=== PATIENT | female | born 1940 | race African-American/Black ===

== ENCOUNTER 2017-04-15 15:57 | Inpatient (IN) | payer OTHER ==
[~2017-04-15] VITALS: Ht 170.2 cm; Wt 78.9 kg
[~2017-04-15 15:57] MED LIST: ATOR40TA70 PO; CLON1PAT10 TD; DONE5TAB33 PO; LEVO25TA7 PO
[2017-04-15 16:44] LABS: BASOPHILS % 0.6 % (0.0-2.0); EOSINOPHILS % 0.7 % (0.0-5.0); HEMATOCRIT. 36.9 % (36.0-48.0); HEMOGLOBIN. 12.2 g/dL (12.0-16.0); LYMPHOCYTES % 38.5 % (20.0-50.0); MEAN CORPUSCULAR HEMOGLOBIN 28.3 pg (28.0-32.0); MEAN CORPUSCULAR VOLUME 85.9 fL (81.0-99.0); MEAN PLATELET VOLUME 8.4 fl (7.4-10.4); MONOCYTES % 5.9 % (2.0-8.0); NEUTROPHILS % 54.3 % (40.0-76.0); PLATELET 228 x1000/uL (130-400); RED BLOOD CELL COUNT 4.29 mill/uL (4.2-5.4)
[2017-04-15 16:51] LABS: PROTHROMBIN TIME 10.7 sec (9.4-11.6)
[2017-04-15 16:53] LABS: CHLORIDE 103 mEq/L (98-107)
[2017-04-15 16:59] LABS: TROPONIN I < 0.02 ng/mL (0.00-0.04)
[2017-04-15] MEDS ORDERED: SODIUM CHLORIDE 0.9% 1,000 ML IV ONE (18:45)
[2017-04-15 19:02] LABS: CLARITY URINE CLOUDY (CLEAR); COLOR URINE YELLOW (YELLOW); KETONES URINE NEGATIVE (NEGATIVE); LEUKOCYTE ESTERASE URINE 1+ (NEGATIVE); NITRITE URINE POSITIVE (NEGATIVE); OCCULT BLOOD URINE NEGATIVE (NEGATIVE); PROTEIN URINE NEGATIVE (NEGATIVE); SPECIFIC GRAVITY URINE 1.019 (1.005-1.030); UROBILINOGEN URINE 0.2 E.U./dL (0.2-1.0)
[2017-04-15] MEDS ORDERED: CEFTRIAXONE 1 G PREMIX 50 ML IV ONE (19:30)
[2017-04-15 23:42] VITALS: BP 185/116
[2017-04-16] VITALS: BP 185/116
[2017-04-16] MEDS ORDERED: CLONIDINE 0.1MG TABLET PO PRN (00:45)
[2017-04-16 04:00] VITALS: BP 124/83
[2017-04-16 08:00] VITALS: BP 144/88
[2017-04-16] MEDS ORDERED: AMLODIPINE 10MG TABLET PO SCH (09:00)
[2017-04-16] MEDS ORDERED: ASPIRIN 81MG TABLET PO SCH (09:00)
[2017-04-16 16:00] VITALS: BP 159/104
[2017-04-16 16:43] VITALS: BP 159/104
[2017-04-16] MEDS ORDERED: CEFTRIAXONE 1 G PREMIX 50 ML IV SCH (18:00)
[2017-04-16] MEDS ORDERED: ATORVASTATIN CALCIUM 40MG TABLET PO SCH (21:00)
== END 2017-04-16 17:00 | disposition short-term general hospital (02) | DRG 74 ==
LOC: ER 16:08 → 7WST 19:33 → EDBEDREQ 19:45 → ENRESERV 21:34 → 7WST 04-16 00:45
PROVIDERS: ADMIT Internal Medicine; ATTEND Internal Medicine
DX: G90.8 Other disorders of autonomic nervous system (principal); F03.90 Unspecified dementia, unspecified severity, without behavioral disturbance, psychotic disturbance, mood disturbance, and anxiety; N39.0 Urinary tract infection, site not specified; E78.5 Hyperlipidemia, unspecified; I10 Essential (primary) hypertension
CPT/HCPCS: 36415; 70450; 70551; 71045; 80053; 80061; 81003; 83036; 84484; 85025; 85610; 93005; 93880; 96374; 99291; J0696; J7030

== ENCOUNTER 2017-12-11 21:14 | Emergency (ER) | payer OTHER ==
[~2017-12-11] VITALS: Ht 175.3 cm; Wt 75.0 kg
[~2017-12-11 21:14] MED LIST changes: -DONE5TAB33 PO; -LEVO25TA7 PO
[2017-12-11] MEDS ORDERED: SODIUM CHLORIDE 0.9% 1,000 ML IV ONE (21:47)
[2017-12-11 23:16] LABS: BASOPHILS % 0.7 % (0.0-2.0); EOSINOPHILS % 0.7 % (0.0-5.0); HEMATOCRIT. 37.5 % (36.0-48.0); HEMOGLOBIN. 12.3 g/dL (12.0-16.0); LYMPHOCYTES % 23.6 % (20.0-50.0); MEAN CORPUSCULAR HEMOGLOBIN 29.3 pg (28.0-32.0); MEAN CORPUSCULAR VOLUME 89.2 fL (81.0-99.0); MEAN PLATELET VOLUME 8.5 fl (7.4-10.4); MONOCYTES % 8.8 % (2.0-8.0); NEUTROPHILS % 66.2 % (40.0-76.0); PLATELET 213 x1000/uL (130-400); RED CELL DISTRIBUTION WIDTH 15.6 % (11.6-14.6)
[2017-12-11 23:20] LABS: CHLORIDE 104 mEq/L (98-107)
[2017-12-12 03:28] LABS: PROTHROMBIN TIME 10.4 sec (9.1-11.1)
[2017-12-12 03:30] LABS: CLARITY URINE CLOUDY (CLEAR); COLOR URINE YELLOW (YELLOW); KETONES URINE NEGATIVE (NEGATIVE); LEUKOCYTE ESTERASE URINE 1+ (NEGATIVE); NITRITE URINE POSITIVE (NEGATIVE); OCCULT BLOOD URINE TRACE (NEGATIVE); PH URINE 5.5 (4.5-8.0); PROTEIN URINE NEGATIVE (NEGATIVE); SPECIFIC GRAVITY URINE 1.021 (1.005-1.030)
[2017-12-12] MEDS ORDERED: CEFTRIAXONE 1 G PREMIX 50 ML IV ONE (05:00)
[2017-12-12 05:10] VITALS: BP 116/115
== END 2017-12-12 07:06 | disposition home or self-care (01) ==
LOC: ER 21:14
DX: R06.02 Shortness of breath (principal); R53.1 Weakness; F03.90 Unspecified dementia, unspecified severity, without behavioral disturbance, psychotic disturbance, mood disturbance, and anxiety; N39.0 Urinary tract infection, site not specified; I10 Essential (primary) hypertension; E78.00 Pure hypercholesterolemia, unspecified; Z79.899 Other long term (current) drug therapy
CPT/HCPCS: 36415; 71045; 80053; 81003; 83880; 84145; 84484; 85025; 85610; 87077; 87086; 87186; 93005; 96365; 99285; J0696; J7030

== ENCOUNTER 2019-08-03 10:54 | Emergency (ER) | payer OTHER ==
[~2019-08-03] VITALS: Ht 160 cm; Wt 64.0 kg
[2019-08-03] MEDS ORDERED: SODIUM CHLORIDE 0.9% 500 ML IV ONE (11:15)
[2019-08-03 11:31] LABS: BASOPHILS % 0.5 % (0.0-2.0); HEMATOCRIT. 38.4 % (36.0-48.0); HEMOGLOBIN. 12.6 g/dL (12.0-16.0); LYMPHOCYTES % 52.6 % (20.0-50.0); MEAN CORPUSCULAR HEMOGLOBIN 28.9 pg (28.0-32.0); MEAN PLATELET VOLUME 9.4 fl (7.4-10.4); MONOCYTES % 6.7 % (2.0-8.0); NEUTROPHILS % 40.2 % (40.0-76.0); PLATELET 149 x1000/uL (130-400); RED BLOOD CELL COUNT 4.36 mill/uL (4.2-5.4)
[2019-08-03 11:49] LABS: CHLORIDE 105 mEq/L (98-107)
[2019-08-03 13:24] LABS: CLARITY URINE TURBID (CLEAR); COLOR URINE YELLOW (YELLOW); KETONES URINE TRACE (NEGATIVE); LEUKOCYTE ESTERASE URINE 3+ (NEGATIVE); NITRITE URINE NEGATIVE (NEGATIVE); OCCULT BLOOD URINE 2+ (NEGATIVE); PH URINE 6.5 (4.5-8.0); PROTEIN URINE TRACE (NEGATIVE); SPECIFIC GRAVITY URINE 1.018 (1.005-1.030)
[2019-08-03] MEDS ORDERED: CEFTRIAXONE 1 G PREMIX 50 ML IV ONE (14:00)
[2019-08-03] MEDS ORDERED: LABETALOL 5MG/ML SYR 20 MG/4 ML SYRINGE IV ONE (14:45)
[2019-08-03 17:31] VITALS: BP 148/80
== END 2019-08-03 17:31 | disposition short-term general hospital (02) ==
LOC: ER 11:05
DX: G93.40 Encephalopathy, unspecified (principal); N39.0 Urinary tract infection, site not specified; R55 Syncope and collapse; I16.1 Hypertensive emergency; I10 Essential (primary) hypertension; F03.90 Unspecified dementia, unspecified severity, without behavioral disturbance, psychotic disturbance, mood disturbance, and anxiety; E11.9 Type 2 diabetes mellitus without complications; Z88.0 Allergy status to penicillin; Z79.899 Other long term (current) drug therapy
CPT/HCPCS: 36415; 70450; 71045; 80053; 81003; 83605; 83690; 83880; 84484; 85025; 87077; 87086; 87186; 93005; 96361; 96365; 96375; 99285; J0696; J3490; J7040

== ENCOUNTER 2019-08-13 11:52 | Inpatient (IN) | payer OTHER ==
[~2019-08-13] VITALS: Ht 157.5 cm; Wt 53.1 kg
[2019-08-13] MEDS ORDERED: SODIUM CHLORIDE 0.9% 1,000 ML IV ONE (14:57)
[2019-08-13 16:15] LABS: BASOPHILS % 0.6 % (0.0-2.0); EOSINOPHILS % 0.2 % (0.0-5.0); HEMATOCRIT. 41.7 % (36.0-48.0); HEMOGLOBIN. 13.9 g/dL (12.0-16.0); LYMPHOCYTES % 16.9 % (20.0-50.0); MEAN CORPUSCULAR HEMOGLOBIN 29.4 pg (28.0-32.0); MONOCYTES % 8.8 % (2.0-8.0); NEUTROPHILS % 73.5 % (40.0-76.0); PLATELET 256 x1000/uL (130-400); RED BLOOD CELL COUNT 4.74 mill/uL (4.2-5.4); RED CELL DISTRIBUTION WIDTH 14.7 % (11.6-14.6)
[2019-08-13 16:17] LABS: CHLORIDE 115 mEq/L (98-107)
[2019-08-13 16:38] LABS: CREATINE KINASE 1525 IU/L (26-192)
[2019-08-13] MEDS ORDERED: AZITHROMYCIN 500 MG TABLET PO ONE (17:00)
[2019-08-13] MEDS ORDERED: GUAIFENESIN 200MG/10ML SUGAR FREE UDC PO PRN (22:30)
[2019-08-13] MEDS ORDERED: ONDANSETRON HCL 4MG/2ML INJ IV PRN (22:30)
[2019-08-13] MEDS ORDERED: ACETAMINOPHEN 325MG TABLET PO PRN ×2 (22:30)
[2019-08-13] MEDS ORDERED: ALBUTEROL 6.7GM HFA INHALER ORI PRN (22:30)
[2019-08-13] MEDS ORDERED: DEXAMETHASONE 4MG/ML 1ML VIAL IV SCH (22:30)
[2019-08-13 22:45] VITALS: BP 130/90
[2019-08-13] MEDS: CEFTRIAXONE 1 G PREMIX 50 ML IV SCH (23:56)
[2019-08-13] MEDS: ENOXAPARIN 60MG/0.6ML SYR SUBCUT SCH (23:56)
[2019-08-13] MEDS: DEXT 5%/0.2% NACL KCL 20MEQ/L 1,000 ML IV SCH (23:56)
[2019-08-14] VITALS: BP_SYST 130; BP_SYST 137; BP_DIAS 90; BP_DIAS 95
[2019-08-14 04:00] VITALS: BP 137/95
[2019-08-14 05:11] LABS: CHLORIDE 118 mEq/L (98-107)
[2019-08-14 05:18] LABS: PHOSPHORUS 3.3 mg/dL (2.5-4.9)
[2019-08-14 05:24] LABS: PROTHROMBIN TIME 10.9 sec (9.6-11.0)
[2019-08-14 05:38] LABS: BASOPHILS % 0.4 % (0.0-2.0); EOSINOPHILS % 0.2 % (0.0-5.0); HEMATOCRIT. 38.9 % (36.0-48.0); HEMOGLOBIN. 12.8 g/dL (12.0-16.0); LYMPHOCYTES % 15.9 % (20.0-50.0); MEAN CORPUSCULAR HEMOGLOBIN 29.1 pg (28.0-32.0); MEAN CORPUSCULAR VOLUME 88.1 fL (81.0-99.0); MEAN PLATELET VOLUME 9.1 fl (7.4-10.4); MONOCYTES % 11.4 % (2.0-8.0); NEUTROPHILS % 72.1 % (40.0-76.0); PLATELET 239 x1000/uL (130-400); RED BLOOD CELL COUNT 4.42 mill/uL (4.2-5.4); RED CELL DISTRIBUTION WIDTH 14.8 % (11.6-14.6)
[2019-08-14 08:00] VITALS: BP 166/95
[2019-08-14] MEDS ORDERED: FAMOTIDINE 20MG/2ML VIAL IV SCH (09:00)
[2019-08-14] MEDS ORDERED: DEXAMETHASONE 2MG TABLET PO SCH (09:00)
[2019-08-14] MEDS: ENOXAPARIN 60MG/0.6ML SYR SUBCUT SCH (09:20)
[2019-08-14 12:00] VITALS: BP 168/84
[2019-08-14] MEDS: DEXT 5%/0.2% NACL KCL 20MEQ/L 1,000 ML IV SCH (14:00)
[2019-08-14 16:00] VITALS: BP 144/88
[2019-08-14] MEDS: AZITHROMYCIN 500 MG in DEXT 5% WATER 250 ML IV SCH (16:43)
[2019-08-14 20:00] VITALS: BP 155/95
[2019-08-14] MEDS: FAMOTIDINE 20MG TABLET PO SCH (21:44)
[2019-08-14] MEDS: CEFTRIAXONE 1 G PREMIX 50 ML IV SCH (21:44)
[2019-08-15] VITALS: BP 189/118
[2019-08-15] MEDS: DIPHENHYDRAMINE 50MG/ML VIAL IV PRN ×2 (00:30→08:01)
[2019-08-15 01:00] VITALS: BP 159/92
[2019-08-15] MEDS: DEXT 5%/0.2% NACL KCL 20MEQ/L 1,000 ML IV SCH ×2 (01:47→16:34)
[2019-08-15 04:00] VITALS: BP 163/95
[2019-08-15 08:00] VITALS: BP 122/87
[2019-08-15] MEDS: ENOXAPARIN 30MG/0.3ML SYR SUBCUT SCH (08:01)
[2019-08-15 16:00] VITALS: BP 138/79
[2019-08-15] MEDS: DEXAMETHASONE 10 MG/ML VIAL IV SCH (16:34)
[2019-08-15] MEDS: AZITHROMYCIN 500 MG in DEXT 5% WATER 250 ML IV SCH (16:34)
[2019-08-15 18:25] LABS: BASOPHILS % 0.6 % (0.0-2.0); EOSINOPHILS % 0.1 % (0.0-5.0); HEMATOCRIT. 40.4 % (36.0-48.0); HEMOGLOBIN. 12.9 g/dL (12.0-16.0); LYMPHOCYTES % 14.8 % (20.0-50.0); MEAN CORPUSCULAR HEMOGLOBIN 28.4 pg (28.0-32.0); MEAN CORPUSCULAR VOLUME 88.9 fL (81.0-99.0); MONOCYTES % 5.9 % (2.0-8.0); NEUTROPHILS % 78.6 % (40.0-76.0); RED BLOOD CELL COUNT 4.54 mill/uL (4.2-5.4); RED CELL DISTRIBUTION WIDTH 15.1 % (11.6-14.6)
[2019-08-15 18:30] LABS: CHLORIDE 116 mEq/L (98-107)
[2019-08-15 18:47] LABS: PLATELET 220 x1000/uL (130-400)
[2019-08-15 20:00] VITALS: BP 147/91
[2019-08-15] MEDS: FAMOTIDINE 20MG TABLET PO SCH (20:57)
[2019-08-15] MEDS: CEFTRIAXONE 1 G PREMIX 50 ML IV SCH (20:58)
[2019-08-16] VITALS (7 sets, daily range): BP systolic 99–155; BP diastolic 68–105
[2019-08-16 03:50] LABS: CLARITY URINE CLEAR (CLEAR); COLOR URINE DARK YELLOW (YELLOW); KETONES URINE NEGATIVE (NEGATIVE); LEUKOCYTE ESTERASE URINE TRACE (NEGATIVE); NITRITE URINE NEGATIVE (NEGATIVE); OCCULT BLOOD URINE NEGATIVE (NEGATIVE); PROTEIN URINE TRACE (NEGATIVE); SPECIFIC GRAVITY URINE 1.025 (1.005-1.030)
[2019-08-16] MEDS: DEXT 5%/0.2% NACL KCL 20MEQ/L 1,000 ML IV SCH ×2 (05:12→17:17)
[2019-08-16 06:53] LABS: CHLORIDE 116 mEq/L (98-107)
[2019-08-16] MEDS: ENOXAPARIN 30MG/0.3ML SYR SUBCUT SCH (08:22)
[2019-08-16] MEDS: DEXAMETHASONE 10 MG/ML VIAL IV SCH (08:22)
[2019-08-16 10:35] LABS: BASOPHILS % 0.2 % (0.0-2.0); HEMATOCRIT. 38.6 % (36.0-48.0); HEMOGLOBIN. 12.6 g/dL (12.0-16.0); LYMPHOCYTES % 10.6 % (20.0-50.0); MEAN CORPUSCULAR HEMOGLOBIN 28.8 pg (28.0-32.0); MEAN CORPUSCULAR VOLUME 88.4 fL (81.0-99.0); MEAN PLATELET VOLUME 9.2 fl (7.4-10.4); MONOCYTES % 5.8 % (2.0-8.0); NEUTROPHILS % 83.4 % (40.0-76.0); PLATELET 229 x1000/uL (130-400); RED BLOOD CELL COUNT 4.37 mill/uL (4.2-5.4); RED CELL DISTRIBUTION WIDTH 14.7 % (11.6-14.6)
[2019-08-16] MEDS: AZITHROMYCIN 500 MG in DEXT 5% WATER 250 ML IV SCH (17:17)
[2019-08-16] MEDS: CEFTRIAXONE 1 G PREMIX 50 ML IV SCH (21:36)
[2019-08-16] MEDS: FAMOTIDINE 20MG TABLET PO SCH (21:36)
[2019-08-16] MEDS: CLONIDINE 0.1MG TABLET PO PRN (21:37)
[2019-08-17 00:19] VITALS: BP 101/54
[2019-08-17 04:00] VITALS: BP 156/95
[2019-08-17] MEDS: CLONIDINE 0.1MG TABLET PO PRN ×2 (05:54→20:40)
[2019-08-17] MEDS: DEXT 5%/0.2% NACL KCL 20MEQ/L 1,000 ML IV SCH ×2 (06:35→20:42)
[2019-08-17 08:00] VITALS: BP 139/84
[2019-08-17] MEDS: DEXAMETHASONE 10 MG/ML VIAL IV SCH (10:05)
[2019-08-17] MEDS: ENOXAPARIN 30MG/0.3ML SYR SUBCUT SCH (10:06)
[2019-08-17 12:00] VITALS: BP 129/76
[2019-08-17 16:00] VITALS: BP 155/89
[2019-08-17] MEDS: AZITHROMYCIN 500 MG in DEXT 5% WATER 250 ML IV SCH (17:39)
[2019-08-17 20:00] VITALS: BP 162/104
[2019-08-17] MEDS: FAMOTIDINE 20MG TABLET PO SCH (20:40)
[2019-08-17] MEDS: CEFTRIAXONE 1 G PREMIX 50 ML IV SCH (20:42)
[2019-08-18] VITALS: BP 149/95
[2019-08-18 04:00] VITALS: BP 160/96
[2019-08-18] MEDS: CLONIDINE 0.1MG TABLET PO PRN (04:57)
[2019-08-18 08:00] VITALS: BP 138/94
[2019-08-18] MEDS: DEXAMETHASONE 10 MG/ML VIAL IV SCH (08:32)
[2019-08-18] MEDS: ENOXAPARIN 30MG/0.3ML SYR SUBCUT SCH (08:32)
[2019-08-18] MEDS: DEXT 5%/0.2% NACL KCL 20MEQ/L 1,000 ML IV SCH (10:07)
[2019-08-18 12:00] VITALS: BP 128/94
[2019-08-18 14:43] LABS: HEMATOCRIT 40.5 % (36.0-48.0); HEMOGLOBIN 13.3 g/dL (12.0-16.0); MEAN CORPUSCULAR HEMOGLOBIN 28.5 pg (28.0-32.0); MEAN CORPUSCULAR VOLUME 86.6 fL (81.0-99.0); PLATELET 243 x1000/uL (130-400); RED BLOOD CELL COUNT 4.67 mill/uL (4.2-5.4); RED CELL DISTRIBUTION WIDTH 14.1 % (11.6-14.6)
[2019-08-18 14:50] LABS: CHLORIDE 109 mEq/L (98-107)
[2019-08-18 16:00] VITALS: BP 150/90
[2019-08-18 18:10] VITALS: BP 150/90
[2019-08-19] MEDS ORDERED: ENOXAPARIN 40MG/0.4ML SYR SUBCUT SCH (09:00)
== END 2019-08-18 20:45 | disposition short-term general hospital (02) | DRG 871 ==
LOC: ER 11:52 → 7WST 19:44 → EDBEDREQTM 19:48 → EDBEDREQ 19:48 → ENRESERV 21:41
PROVIDERS: ADMIT Internal Medicine; ATTEND Internal Medicine
DX: A41.89 Other specified sepsis (principal); U07.1 COVID-19; J12.89 Other viral pneumonia; J96.01 Acute respiratory failure with hypoxia; E43 Unspecified severe protein-calorie malnutrition; E87.0 Hyperosmolality and hypernatremia; N17.9 Acute kidney failure, unspecified; M62.82 Rhabdomyolysis; E87.1 Hypo-osmolality and hyponatremia; E78.5 Hyperlipidemia, unspecified; G90.8 Other disorders of autonomic nervous system; E86.0 Dehydration; R62.7 Adult failure to thrive; F03.90 Unspecified dementia, unspecified severity, without behavioral disturbance, psychotic disturbance, mood disturbance, and anxiety; L89.329 Pressure ulcer of left buttock, unspecified stage; L89.319 Pressure ulcer of right buttock, unspecified stage; L89.159 Pressure ulcer of sacral region, unspecified stage; R74.0 Nonspecific elevation of levels of transaminase and lactic acid dehydrogenase [LDH]; E11.9 Type 2 diabetes mellitus without complications; I11.9 Hypertensive heart disease without heart failure; D72.810 Lymphocytopenia; Z86.73 Personal history of transient ischemic attack (TIA), and cerebral infarction without residual deficits; Z68.21 Body mass index [BMI] 21.0-21.9, adult; Z88.0 Allergy status to penicillin; Z79.899 Other long term (current) drug therapy
CPT/HCPCS: 36415; 71045; 80048; 80053; 81003; 82040; 82550; 83735; 83880; 84100; 84134; 84484; 85025; 85027; 93005; 99285; J0456; J0696; J1100; J1200; J1650; J7030; J7060; J8540; U0003-CS

== ENCOUNTER 2019-08-30 10:46 | Inpatient (IN) | payer OTHER ==
[~2019-08-30] VITALS: Ht 167.6 cm; Wt 68.7 kg
[2019-08-30] MEDS ORDERED: SODIUM CHLORIDE 0.9% 1000ML BAG (SEPSIS BOLUS) IV ONE (11:30)
[2019-08-30 12:09] LABS: CLARITY URINE CLOUDY (CLEAR); COLOR URINE DARK YELLOW (YELLOW); KETONES URINE NEGATIVE (NEGATIVE); LEUKOCYTE ESTERASE URINE 1+ (NEGATIVE); NITRITE URINE POSITIVE (NEGATIVE); OCCULT BLOOD URINE NEGATIVE (NEGATIVE); PROTEIN URINE 1+ (NEGATIVE); SPECIFIC GRAVITY URINE 1.029 (1.005-1.030)
[2019-08-30 12:19] LABS: BASOPHILS % 0.3 % (0.0-2.0); EOSINOPHILS % 0.1 % (0.0-5.0); HEMATOCRIT. 42.5 % (36.0-48.0); HEMOGLOBIN. 13.8 g/dL (12.0-16.0); LYMPHOCYTES % 20.8 % (20.0-50.0); MEAN CORPUSCULAR VOLUME 89.5 fL (81.0-99.0); MONOCYTES % 5.5 % (2.0-8.0); NEUTROPHILS % 73.3 % (40.0-76.0); PLATELET 218 x1000/uL (130-400); RED BLOOD CELL COUNT 4.75 mill/uL (4.2-5.4)
[2019-08-30 12:26] LABS: CHLORIDE 118 mEq/L (98-107)
[2019-08-30 12:28] LABS: INR 1.1; PROTHROMBIN TIME 11.9 sec (9.6-11.0)
[2019-08-30 12:34] LABS: BG BASE EXCESS -2.8 mmol/L (-2.0-2.0); BG DEOXYHEMOGLOBIN 1.1 % (0.0-5.0); BG FRACTION INSPIRED OXYGEN 28; BG HCO3 ACT 20.8 mmol/L (22.0-26.0); BG METHEMOGLOBIN 0.3 % (0.0-1.5); BG OXYGEN SATURATION 98.9 % (92.0-98.5); BG OXYHEMOGLOBIN 97.6 % (94.0-97.0); BG PCO2 32.6 mmHg (35.0-45.0); BG PH 7.422 (7.350-7.450); BG PO2 121.1 mmHg (75.0-100.0); BG SAMPLE SITE RIGHT RADIAL; BG TOTAL HEMOGLOBIN 13.4 g/dL (12.0-18.0); BG VENT MODE NASAL CANNULA
[2019-08-30] MEDS ORDERED: LEVOFLOXACIN 750MG PREMIX 150 ML IV ONE (13:45)
[2019-08-30] MEDS ORDERED: VANCOMYCIN 1 G PREMIX 200 ML IV ONE (13:45)
[2019-08-30] MEDS ORDERED: DEXT 5%/0.45% NACL 1000ML 1,000 ML IV SCH (19:03)
[2019-08-30] MEDS ORDERED: ACETAMINOPHEN 325MG TABLET PO PRN ×2 (19:15)
[2019-08-30] MEDS ORDERED: ALBUTEROL 6.7GM HFA INHALER ORI PRN (19:15)
[2019-08-30] MEDS ORDERED: MAGNESIUM/ALUMINUM HYDROXIDE/SIMETHICONE 30ML UDC PO PRN (19:15)
[2019-08-30] MEDS ORDERED: DIPHENHYDRAMINE 50MG/ML VIAL IV PRN (19:15)
[2019-08-30] MEDS ORDERED: ONDANSETRON HCL 4MG/2ML INJ IV PRN (19:15)
[2019-08-30 20:00] VITALS: BP 145/98
[2019-08-30 20:42] VITALS: BP 145/98
[2019-08-30] MEDS ORDERED: POTASSIUM CHLORIDE INJ 40 MEQ in DEXTROSE 5% WATER 1,000 ML IV SCH (21:00)
[2019-08-30] MEDS ORDERED: POTASSIUM CHLORIDE INJ 20 MEQ in DEXTROSE 5% WATER 1,000 ML IV SCH (21:00)
[2019-08-30] MEDS ORDERED: CEFTRIAXONE 1 G PREMIX 50 ML IV SCH (21:00)
[2019-08-30] MEDS: ENOXAPARIN 40MG/0.4ML SYR SUBCUT SCH (23:08)
[2019-08-30] MEDS: DEXT 5% WATER + KCL 20MEQ/L 1,000 ML IV SCH (23:49)
[2019-08-30 23:59] VITALS: BP 130/93
[2019-08-31 04:00] VITALS: BP 138/82
[2019-08-31 06:32] LABS: BASOPHILS % 0.6 % (0.0-2.0); EOSINOPHILS % 0.2 % (0.0-5.0); HEMATOCRIT. 37.4 % (36.0-48.0); LYMPHOCYTES % 15.5 % (20.0-50.0); MEAN CORPUSCULAR HEMOGLOBIN 28.8 pg (28.0-32.0); MEAN CORPUSCULAR VOLUME 89.7 fL (81.0-99.0); MEAN PLATELET VOLUME 8.6 fl (7.4-10.4); MONOCYTES % 8.9 % (2.0-8.0); NEUTROPHILS % 74.8 % (40.0-76.0); PLATELET 152 x1000/uL (130-400); RED BLOOD CELL COUNT 4.17 mill/uL (4.2-5.4); RED CELL DISTRIBUTION WIDTH 15.2 % (11.6-14.6)
[2019-08-31 06:36] LABS: CHLORIDE 118 mEq/L (98-107)
[2019-08-31] MEDS: DEXT 5% WATER + KCL 20MEQ/L 1,000 ML IV SCH ×3 (07:00→22:27)
[2019-08-31 08:00] VITALS: BP 147/97
[2019-08-31] MEDS ORDERED: POTASSIUM CHLORIDE 20MEQ/PACKET PO NR (11:00)
[2019-08-31 12:00] VITALS: BP 147/91
[2019-08-31] MEDS: LEVOFLOXACIN 250MG PREMIX 50 ML IV SCH (15:12)
[2019-08-31 16:00] VITALS: BP 116/73
[2019-08-31 20:44] VITALS: BP 126/85
[2019-08-31] MEDS: ENOXAPARIN 40MG/0.4ML SYR SUBCUT SCH (22:27)
[2019-09-01] VITALS: BP 112/72
[2019-09-01 04:00] VITALS: BP 135/81
[2019-09-01 08:00] VITALS: BP 127/87
[2019-09-01 10:03] LABS: CHLORIDE 114 mEq/L (98-107)
[2019-09-01 12:00] VITALS: BP 118/71
[2019-09-01 16:00] VITALS: BP 116/69
[2019-09-01] MEDS: DEXT 5% WATER + KCL 20MEQ/L 1,000 ML IV SCH (17:12)
[2019-09-01] MEDS: LEVOFLOXACIN 250MG PREMIX 50 ML IV SCH (17:12)
[2019-09-01 20:00] VITALS: BP 111/75
[2019-09-01] MEDS: ENOXAPARIN 40MG/0.4ML SYR SUBCUT SCH (20:56)
[2019-09-02] VITALS: BP 113/80
[2019-09-02] MEDS: DEXT 5% WATER + KCL 20MEQ/L 1,000 ML IV SCH ×2 (02:34→10:31)
[2019-09-02 04:00] VITALS: BP 117/75
[2019-09-02 08:00] VITALS: BP 100/48
[2019-09-02 12:00] VITALS: BP 135/87
[2019-09-02 15:00] VITALS: BP 135/87
== END 2019-09-02 16:10 | disposition short-term general hospital (02) | DRG 177 ==
LOC: ER 11:00 → 7WST 16:19 → ENRESERV 17:09
PROVIDERS: ADMIT Internal Medicine; ATTEND Internal Medicine
DX: U07.1 COVID-19 (principal); G93.41 Metabolic encephalopathy; E43 Unspecified severe protein-calorie malnutrition; J12.89 Other viral pneumonia; N17.9 Acute kidney failure, unspecified; N39.0 Urinary tract infection, site not specified; E87.0 Hyperosmolality and hypernatremia; G90.8 Other disorders of autonomic nervous system; E86.0 Dehydration; F03.90 Unspecified dementia, unspecified severity, without behavioral disturbance, psychotic disturbance, mood disturbance, and anxiety; I11.9 Hypertensive heart disease without heart failure; E11.9 Type 2 diabetes mellitus without complications; Z86.73 Personal history of transient ischemic attack (TIA), and cerebral infarction without residual deficits; Z87.440 Personal history of urinary (tract) infections; Z79.1 Long term (current) use of non-steroidal anti-inflammatories (NSAID); Z79.899 Other long term (current) drug therapy; Z68.24 Body mass index [BMI] 24.0-24.9, adult
CPT/HCPCS: 36415; 36600; 71045; 80048; 80053; 81003; 82375; 82805; 82962; 83605; 83735; 84100; 84484; 85025; 87070; 93005; 96365; 99291; J0696; J1650; J1956; J3370; J3480; J7030; J7060; J7070; U0003-CS